=== PATIENT | female | born 1950 | race Caucasian/White ===

== ENCOUNTER 2021-05-08 13:40 | Emergency (ER) | payer MEDICARE ==
[~2021-05-08] VITALS: Ht 157.5 cm; Wt 61.1 kg
[~2021-05-08 13:40] MED LIST: ASPI-10 PO; ATEN-169 PO; DOCU-169 PO; LORA1TAB PO; MIRT15TA3 PO; MULT-1085 PO
[2021-05-08 13:59] VITALS: BP 148/83
== END 2021-05-08 18:41 | disposition home or self-care (01) ==
LOC: ER 13:44
DX: R21 Rash and other nonspecific skin eruption (principal); L29.9 Pruritus, unspecified; Z79.82 Long term (current) use of aspirin; Z79.899 Other long term (current) drug therapy
CPT/HCPCS: 99281